=== PATIENT | female | born 1970 | race Caucasian/White ===

== ENCOUNTER 2022-09-19 18:20 | Emergency (ER) | payer BC, OTHER ==
[2022-09-19 19:05] VITALS: BP 163/100; PULSE 96; RESP 16; TEMP 98
[2022-09-19] MEDS ORDERED: HYDROcodone/APAP 5-325MG 1 EACH TAB PO STA (19:15)
[2022-09-19] MEDS ORDERED: DIPH,PERTUS(ACELL)TETVAC-LF 0.5 ML VIAL IM ONE (19:16)
--- NOTE | 2022-09-19 19:37 | XR ---
EXAMINATION TYPE: XR hand complete LT DATE OF EXAM: 09/19/2022 COMPARISON: NONE HISTORY: Trauma. Stepped on by a horse. TECHNIQUE: 3 views FINDINGS: There is comminuted fracture of the head of the third metacarpal. There is up to 5 mm displ acement. There is no dislocation. There is soft tissue swelling on the dorsum of the hand. IMPRESSION: Acute comminuted fracture of the neck of the third metacarpal head.
[2022-09-19] MEDS ORDERED: ceFAZolin 1,000 MG VIAL (IM USE) IM STA (19:45)
--- NOTE | 2022-09-19 19:46 | ED ---
Upper Extremity HPI - General Chief Complaint: Extremity Injury, Upper Stated Complaint: hand injury, stepped on by horse Time Seen by Provider: 09/19/22 19:05 Source: patient, family, RN notes reviewed Mode of arrival: ambulatory Limitations: no limitations - History of Present Illness Initial Comments: This is a 52-year-old female who presents to the emergency department for a left hand injury. States that earlier today she fell and a horse stepped on her left hand. Her hand currently feels very numb. She does have minimal movement of all digits. Also notes an open wound to the left pointer finger that was covered with horse manure. Unsure when her last tetanus vaccine was. Denies any fevers, chills, sore throat, cough, dyspnea, chest pain, palpitations, abdominal pain, nausea, vomiting, diarrhea, back pain, or headaches. MD Complaint: Injury to:: left, hand Context: crush - Related Data Previous Rx's Medication Instructions Recorded HYDROcodone/APAP 7.5-325MG [[place] 1 tab PO Q4H PRN 3 Days #18 tab 09/19/22 7.5-325] Ibuprofen 800 mg PO Q8H PRN #30 tab 09/19/22 Levofloxacin [Levaquin] 750 mg PO DAILY 7 Days #7 tab 09/19/22 metroNIDAZOLE [Flagyl] 500 mg PO TID 7 Days #21 tab 09/19/22 Allergies Allergy/AdvReac Type Severity Reaction Status Date / Time No Known Allergies Allergy Verified 09/19/22 19:05 Review of Systems ROS Statement: Those systems with pertinent positive or pertinent negative responses have been documented in the HPI. ROS Other: All systems not noted in ROS Statement are negative. Past Medical History Past Medical History: No Reported History History of Any Multi-Drug Resistant Organisms: None Reported Past Surgical History: No Surgical Hx Reported Past Psychological History: No Psychological Hx Reported Smoking Status: Never smoker Past Alcohol Use History: None Reported Past Drug Use History: None Reported General Exam General appearance: alert, in distress Head exam: Present: atraumatic, normocephalic, normal inspection Respiratory exam: Present: normal lung sounds bilaterally. Absent: respiratory distress, wheezes, rales, rhonchi, stridor Cardiovascular Exam: Present: regular rate, normal rhythm, normal heart sounds. Absent: systolic murmur, diastolic murmur, rubs, gallop, clicks Extremities exam: Present: other (Significant swelling and ecchymosis to the dorsal aspect of the left hand, most prominent around the third MCP joint. There is an avulsion injury to the left index finger with active bleeding. She does have movement of all 5 digits and capillary refill is less than 1 second.) Neurological exam: Present: alert, oriented X3, CN II-XII intact Psychiatric exam: Present: normal affect, normal mood Course Vital Signs 09/19/22 19:01 Temperature 98 F Pulse Rate 96 Respiratory 16 Rate Blood Pressure 163/100 O2 Sat by Pulse 98 Oximetry Procedures - Nerve Block Consent Obtained: verbal consent Local Anesthetic Used: Lidocaine 1% Amount of anesthesia used: 2 Side: left Nerve Blocks: digital Procedure Successful: Yes Complications: none Patient Tolerated Procedure: well - Orthopedic Splinting/Casting Injury #1 Side: left Upper Extremity Injury Location: hand Upper Extremity Immobilizer: volar splint Medical Decision Making - Medical Decision Making This is a 52-year-old female who presents to the emergency department for a left hand injury. X-ray of the left hand obtained, and on my interpretation there is a comminuted and displaced fracture of the third metacarpal head. There also appears to be a fracture to the DIP joint of the index finger where the patient has an avulsion injury. She was given a dose of Kefzol in the emergency department and her tetanus status was updated. I also did a digital block to the index finger to help with pain control. Her hand and index finger were soaked in sterile water for a prolonged period of time due to significant contamination with horse manure. Orthopedics was consulted and did not recommend any urgent intervention. She was placed in a volar splint and Gelfoam was applied to the finger prior to wrapping it. Prescription for levofloxacin and Flagyl provided to cover a broad range of bacteria, including atypicals and anaerobic bacteria, due to contamination with horse manure. She was also given a prescription for ibuprofen and [place] to control her pain. Advised alternating with ibuprofen and Tylenol and taking the [place] sparingly when her pain is the most severe. She is also instructed to apply ice for 10-15 minutes every 2-3 hours and to keep the hand elevated. Information for orthopedic follow-up was provided, and she is instructed to contact their office in the morning. Return precautions reviewed in depth, the patient is instructed to return to the emergency department with any new, worsening, or concerning symptoms. Patient verbalized understanding. This case was discussed in detail with the attending ED physician. Presentation, findings, and treatment plan discussed in detail as well. - Radiology Data Radiology results: report reviewed, image reviewed Disposition Clinical Impression: Fracture of third metacarpal bone of left hand Disposition: HOME SELF-CARE Instructions (If sedation given, give patient instructions): Hand Fracture (ED), Splint Care (ED) Additional Instructions: Return to the emergency department with any new, worsening, or concerning symptoms. Take both antibiotics as prescribed for 7 days. Alternate with Ibuprofen and Tylenol for pain relief. Take the [place] sparingly when your pain is the most severe. Apply ice for 10-15 minutes every 2-3 hours and keep the hand elevated. Contact orthopedics as listed below for a follow-up appointment. Follow up with your primary care provider in 1-2 days. Prescriptions: metroNIDAZOLE [Flagyl] 500 mg PO TID 7 Days #21 tab Ibuprofen 800 mg PO Q8H PRN #30 tab PRN Reason: Pain Levofloxacin [Levaquin] 750 mg PO DAILY 7 Days #7 tab HYDROcodone/APAP 7.5-325MG [[place] 7.5-325] 1 tab PO Q4H PRN 3 Days #18 tab PRN Reason: Pain Is patient prescribed a controlled substance at d/c from ED?: Yes When asked, does pt state using other controlled substances?: No If prescribed controlled substance>3 days was MAPS reviewed?: Prescribed <3 Days Referrals: None,Stated [Primary Care Provider] - 1-2 days Chio Quinones DO [Doctor of Osteopathic Medicine] - 1-2 days
[2022-09-19] MEDS ORDERED: KETOROLAC 15 MG/ML 1 ML VIAL IM STA (20:35)
[2022-09-19] MEDS ORDERED: MORPHINE SULFATE 4 MG/ML SYRINGE IM STA (20:35)
[2022-09-19] MEDS ORDERED: LIDOCAINE 1% INJ 10MG/ML (30 ML VIAL-PF) SQ ONE (21:34)
[2022-09-19] MEDS ORDERED: HYDROmorphone 0.5 MG/0.5 ML SYRINGE IM STA (22:22)
[2022-09-19] MEDS ORDERED: ACET/COD 300 MG/30 MG STARTER PACK 6 TAB BTL PO STA (22:46)
[2022-09-19] MEDS ORDERED: IBUPROFEN 600 MG STARTER PACK 4 TAB BTL PO STA (22:46)
[2022-09-19] MEDS ORDERED: GELATIN SPONGE,ABSORB (SMALL) 1 EACH SPONGE TOPICAL STA (23:14)
== END 2022-09-20 00:01 | disposition home or self-care (01) ==
LOC: EC 18:20
DX: S62.303A Unspecified fracture of third metacarpal bone, left hand, initial encounter for closed fracture (principal); W10.9XXA Fall (on) (from) unspecified stairs and steps, initial encounter
CPT/HCPCS: 73130; 90715; 99284; 96372 ×4; 90471; 29125; 64450; J2270; J0690; J2001; J1885; J1170; 64455

== ENCOUNTER 2022-09-23 05:57 | Day surgery (SDC) | payer BC ==
[2022-09-21 15:26] VITALS: BMI 26.5
--- NOTE | 2022-09-22 10:32 | P.HPOR ---
History of Present Illness H&P Date: 09/22/22 Chief Complaint: Left hand pain The patient is a 52-year-old right-hand dominant female who presents with left hand pain after an injury on 09/19/2022. She was stepped on by a horse in a horse stall. Initially she was seen in the emergency room and had her left index finger wound irrigated. She was started on oral antibiotics. She subsequently followed in the office the next day. She notes moderate left hand pain. She notes her tetanus is up-to-date. Review of Systems As per HPI Past Medical History Past Medical History: No Reported History History of Any Multi-Drug Resistant Organisms: None Reported Past Surgical History: No Surgical Hx Reported Additional Past Surgical History / Comment(s): Birthmark removed. Past Anesthesia/Blood Transfusion Reactions: Motion Sickness Past Psychological History: No Psychological Hx Reported Smoking Status: Never smoker Past Alcohol Use History: None Reported Past Drug Use History: None Reported - Past Family History Mother Family Medical History: No Reported History Medications and Allergies Home Medications Medication Instructions Recorded Confirmed Type HYDROcodone/APAP 7.5-325MG [[place] 1 tab PO Q4H PRN 3 Days #18 tab 09/19/22 09/21/22 Rx 7.5-325] Levofloxacin [Levaquin] 750 mg PO DAILY 7 Days #7 tab 09/19/22 09/21/22 Rx metroNIDAZOLE [Flagyl] 500 mg PO TID 7 Days #21 tab 09/19/22 09/21/22 Rx Allergies Allergy/AdvReac Type Severity Reaction Status Date / Time No Known Allergies Allergy Verified 09/21/22 15:16 Physical Examination - Wrist & Hand left Location of pain: index finger, long finger Wrist pain modifiers: with motion Index finger pain modifiers: with motion Long finger pain modifiers: with motion Appearance: other (Moderate dorsal hand swelling) Tenderness with palpation: index finger (Tender distal tip), long finger (Over the metacarpal neck) ROM: index finger MP joint: 75 degrees ROM: index finger PIP joint: 70 degrees ROM: index finger DIP joint: 10 degrees Results The patient is a well-developed well-nourished female. Nontender about the left shoulder elbow and wrist. On examination her left hand she has maceration of the index finger distal tip. Nail bed involvement is noted. She fires the FDP/FDS/EDC of the left index finger. She has moderate tenderness about the left third digit metacarpal neck. No rotational abnormalities noted. Light touch is distally intact to the digits except the left index finger distal tip. - Diagnostic results Wrist/Hand MRI: image reviewed (Left index finger comminuted distal phalanx fracture with some bony defect, left third metacarpal neck fracturecomminuteddisplaced) Assessment and Plan Assessment: Left index finger partial amputation/open distal phalanx fracture/nailbed laceration Left third metacarpal neck fracture Plan: I talked to the patient regarding her condition at this point recommend proceeding with surgical intervention regarding her left index finger. We'll plan to proceed with irrigation and debridement with possible amputation revision/nail bed repair. We will likely perform that utilizing general anesthesia along with a digital block for postoperative analgesia. Time with Patient: Less than 30
[2022-09-23] MEDS ORDERED: SCOPOLAMINE 1 MG/72 HR PATCH TRANSDERM ONE (05:58)
[2022-09-23] MEDS ORDERED: LACTATED RINGERS 1,000 ML IV SCH (05:58)
[2022-09-23] MEDS ORDERED: ONDANSETRON 4 MG/2 ML VIAL IVP ONE (05:58)
[2022-09-23] MEDS ORDERED: MIDAZOLAM 2 MG/2 ML VIAL IV PRN (05:58)
[2022-09-23] MEDS ORDERED: DEXAMETHASONE SOD PHOSPHATE 4 MG/ML 1 ML VIAL IV ONE (05:58)
[2022-09-23 06:38] LABS: HCT 36.9 % (34.0-46.0); HGB 13.1 gm/dL (11.4-16.0); MCH 30.4 pg (25.0-35.0); MCHC 35.5 g/dL (31.0-37.0); MCV 85.5 fL (80.0-100.0); Mean Platelet Volume 8.9; Platelet Count 176 k/uL (150-450); RBC 4.32 m/uL (3.80-5.40); RDW 12.7 % (11.5-15.5); WBC 5.4 k/uL (3.8-10.6)
[2022-09-23 06:54] LABS: Potassium 3.5 mmol/L (3.5-5.1)
[2022-09-23] MEDS ORDERED: LACTATED RINGERS 1,000 ML IV ONE (06:54)
[2022-09-23] MEDS ORDERED: LIDOCAINE 2% INJ 20 MG/ML (2 ML VIAL) ONE (06:55)
[2022-09-23] MEDS ORDERED: fentaNYL (PF) 50 MCG/ML 2 ML AMP ONE (06:55)
[2022-09-23] MEDS ORDERED: PHENYLEPHRINE-0.9% NACL SYG 1,000 MCG/10 ML SYRINGE ONE (06:55)
[2022-09-23] MEDS ORDERED: MIDAZOLAM 2 MG/2 ML VIAL ONE (06:55)
[2022-09-23] MEDS ORDERED: PROPOFOL 10 MG/ML 20 ML VIAL IV ONE (06:55)
[2022-09-23] MEDS ORDERED: BUPIVACAINE (PF) 0.25% 30 ML VIAL SQ ONE (06:59)
[2022-09-23] MEDS ORDERED: ceFAZolin 1,000 MG in SODIUM CHLORIDE 0.9% 1,000 ML IRRIGATION ONE (07:18)
--- NOTE | 2022-09-23 07:48 | P.OP ---
Date of Procedure: 09/23/22 Preoperative Diagnosis: Left index finger partial amputation Postoperative Diagnosis: Same Procedure(s) Performed: Irrigation and debridement left index finger open distal phalanx fracture with amputation revision Anesthesia: DALTON, local Surgeon: Michael Martinez Special Education Assistant #1: Ambrose Montilla Estimated Blood Loss (ml): 4 Pathology: none sent Condition: stable Disposition: PACU Indications for Procedure: The patient's a 52-year-old female who presents after sustaining an injury to her left index finger 2 days ago with an open distal phalanx fracture. She was noted to have soft tissue loss. A discussion of the risks and benefits of operative intervention was made with patient. She opted to proceed. Operative risks to include infection, and possible need for subsequent procedures was discussed. Informed consent was obtained. Operative Findings: As below Description of Procedure: The patient was brought to the operating room, and after induction of general anesthesia the left upper extremity was prepped and draped in normal fashion. A [place] drain was used as a tourniquet for the left index finger. The amputation of the distal tip was explored. The distal phalanx was exposed. I d id proceed with shortening to provide adequate soft tissue coverage. No remaining nail bed was noted. Sharp debridement was performed with a scalpel down to level of the distal phalanx/bone. Copious irrigation was utilized with 2 L of fluid. The soft tissues were then closed over the distal tip utilizing 5-0 fast-absorbing Vicryl suture. I felt there was adequate soft tissue coverage at this point. The tourniquet was removed. Triple antibiotic ointment was placed. A digital block was placed utilizing one quarter percent plain Marcaine/10 mL. A sterile dressing was applied in addition to a volar splint. The patient was awoken from general anesthesia and transferred to recovery room in good condition. Blood loss was estimated at 4 mL. No complications were incurred. Sponge and needle counts were correct at the end of the case.
[2022-09-23 08:01] VITALS: TEMP 97.1
[2022-09-23] MEDS: HYDROmorphone 0.5 MG/0.5 ML SYRINGE IVP PRN ×2 (08:18→08:39)
[2022-09-23] MEDS ORDERED: KETOROLAC 15 MG/ML 1 ML VIAL IVP ONE (08:39)
[2022-09-23 09:17] VITALS: RESP 20
[2022-09-23 09:58] VITALS: BP 129/76; PULSE 74
== END 2022-09-23 10:13 | disposition home or self-care (01) ==
LOC: OR 05:57
PROVIDERS: ATTEND Orthopaedic Surgery
DX: S68.121A Partial traumatic metacarpophalangeal amputation of left index finger, initial encounter (principal); W55.19XA Other contact with horse, initial encounter; Z79.899 Other long term (current) drug therapy
CPT/HCPCS: 80051; 85027; 11012; J2250; J1100; J2405; J0690; J3010; J1885; J2370; J2704; J1170; J2001

== ENCOUNTER 2022-09-28 10:44 | Day surgery (SDC) | payer BC ==
--- NOTE | 2022-09-27 19:31 | P.HPOR ---
History of Present Illness H&P Date: 09/27/22 Chief Complaint: Left third metacarpal neck frature Subjective: This is a 52 year old female that presents today for initial evaluation regarding a left hand injury that occurred on 09/19/22 when she tripped in a horse stall and had the horse stomp on her hand. She was seen in office with Dr. Azul after her injury on 09/21/22 and was found to have a left index finger partial tip amputation and a comminuted third metacarpal neck fracture and underwent revision amputation for a partial index finger tip amputation on 09/23/22. She presents today for further evaluation regarding her left middle finger fracture due to complexity of the injury. She has been on Keflex for her injury and has been in her post op splint since surgery. Physical Examination: LUE: AIN/PIN/Radial/Ulnar/Median motor intact. Radial/Ulnar/Median SILT. 2+/4 Radial/Ulnar pulses palpated. 5/5 APB, 5/5 FDI. Index finger tip well perfused with good skin coverage present. Pt unable to make a fist due to pain, obvious ulnar deviation of third metacarpal with any attempt to make a fist. Imaging: X-Rays of the left hand 3V on 09/26/22 in office demonstrate a comminuted third metacarpal neck fracture with 20 degrees of extension and 30 degrees of ulnar deviation. Fracture extension into metadiaphyseal portion of metacarpal. Impression: 1.) Left third metacarpal neck fracture, displaced. 2.) Left index finger distal tip amputation s/p revision amputation. Plan: Diagnosis and treatment options were discussed with the patient. Due to continued deformity of her left middle finger metacarpal I recommend surgical intervention with left third metacarpal fracture CRPP vs ORIF. Risks and benefits of surgery including bleeding, infection, damage to surrounding tissue, need for further surgery, residual numbness were discussed and the patient wished to go forward with surgery. She is placed in a new dressing and will be scheduled for surgery in the near future. The patient was agreeable with this plan. -Eric Avila DO Orthopedic Hand/Upper Extremity Surgeon Past Medical History Past Medical History: No Reported History Additional Past Medical History / Comment(s): 09/19/22 HORSE STEPPED ON LEFT HAND. History of Any Multi-Drug Resistant Organisms: None Reported Past Surgical History: No Surgical Hx Reported Additional Past Surgical History / Comment(s): 09/23/22 PARTIAL AMPUTAION OF LEFT INDEX FINGER BY DR. HUNT. Birthmark removed. Past Anesthesia/Blood Transfusion Reactions: Motion Sickness, Postoperative Nausea & Vomiting (PONV) Past Psychological History: No Psychological Hx Reported Smoking Status: Never smoker Past Alcohol Use History: None Reported Past Drug Use History: None Reported - Past Family History Mother Family Medical History: No Reported History Medications and Allergies Home Medications Medication Instructions Recorded Confirmed Type Cephalexin [Keflex] 500 mg PO Q6HR 10 Days #28 cap 09/23/22 09/27/22 Rx HYDROcodone/APAP 5-325MG [[place] 1 tab PO Q6HR PRN #15 tab 09/23/22 09/27/22 Rx 5-325] Allergies Allergy/AdvReac Type Severity Reaction Status Date / Time No Known Allergies Allergy Verified 09/27/22 09:18 Physical Examination Osteopathic Statement: *. No significant issues noted on an osteopathic structural exam other than those noted in the History and Physical/Consult.
[~2022-09-28 10:44] MED LIST: DEXAMETHASONE SOD PHOSPHATE 4 MG/ML 1 ML VIAL IV ONE; LACTATED RINGERS 1,000 ML IV SCH; LIDOCAINE 1% (10MG/ML) FOR IV START INTRADERMA PRN; MIDAZOLAM 2 MG/2 ML VIAL IV PRN; ONDANSETRON 4 MG/2 ML VIAL IVP ONE
[2022-09-28] MEDS ORDERED: SCOPOLAMINE 1 MG/72 HR PATCH TRANSDERM ONE (11:28)
[2022-09-28] MEDS ORDERED: LIDOCAINE 2% INJ 20 MG/ML (2 ML VIAL) ONE (11:46)
[2022-09-28] MEDS ORDERED: PHENYLEPHRINE-0.9% NACL SYG 1,000 MCG/10 ML SYRINGE ONE (11:46)
[2022-09-28] MEDS ORDERED: fentaNYL (PF) 50 MCG/ML 2 ML AMP ONE (11:46)
[2022-09-28] MEDS ORDERED: MIDAZOLAM 2 MG/2 ML VIAL ONE (11:46)
[2022-09-28] MEDS ORDERED: PROPOFOL 10 MG/ML 20 ML VIAL IV ONE (11:46)
[2022-09-28] MEDS ORDERED: BACITRACIN ZINC 500 UNIT/GM OINT 28.4 GM TUBE TOPICAL ONE (12:25)
[2022-09-28] MEDS ORDERED: BUPIVACAINE (PF) 0.5% 30 ML VIAL SQ ONE (12:38)
[2022-09-28 12:53] VITALS: TEMP 98.9
[2022-09-28] MEDS: HYDROmorphone 0.5 MG/0.5 ML SYRINGE IVP PRN ×2 (12:56→13:09)
[2022-09-28 13:04] VITALS: RESP 16
[2022-09-28] MEDS ORDERED: LABETALOL SYRINGE 5 MG/ML IVP ONE (13:20)
[2022-09-28 13:57] VITALS: PULSE 79
[2022-09-28] MEDS ORDERED: HYDROcodone/APAP 5-325MG 1 EACH TAB ONE (14:00)
[2022-09-28] MEDS ORDERED: HYDROcodone/APAP 5-325MG 1 EACH TAB PO ONE (14:01)
[2022-09-28 14:17] VITALS: BP 133/85
--- NOTE | 2022-09-28 22:12 | P.OP ---
Date of Procedure: 09/28/22 Preoperative Diagnosis: Left third metacarpal neck fracture, displaced. Postoperative Diagnosis: Left third metacarpal neck fracture, displaced. Procedure(s) Performed: Left third metacarpal neck fracture closed reduction percutaneous pinning Implants: 0.045 K Wires x 2 Anesthesia: DALTON Surgeon: Eric Avila Machine Cloth Trimmer #1: Pradeep Romero Estimated Blood Loss (ml): 10 Pathology: none sent Condition: stable Disposition: PACU Description of Procedure: This is a 52 year old female who sustained a left third metacarpal neck fracture with displacement and rotational deformity who presents today for surgical intervention. Risks and benefits of surgery were discussed with the patient including bleeding, damage to surrounding tissue, infection, need for further surgery as well as risks of anesthesia including pulmonary embolism and even and the patient wished to proceed with surgical intervention. The patient was seen in the pre-operative area by myself. Consent and H&P were completed and updated. The correct extremity was marked in the pre-operative area by myself and all other questions were answered. Operative Narrative: The patient was brought to the operating room by the department of anesthesia. They remained on the portable stretcher and a rolling hand table was brought to the side of the operative extremity. Pre-operative time out was performed indicating the correct patient, procedure and laterality. All in the room agreed. Pre-operative antibiotics were given prior to skin incision. The patient was then drifted off to sleep by the department of anesthesia. A nonsterile tourniquet was then applied to the operative extremity and the left upper extremity was then prepped and draped in normal sterile fashion. The tourniquet was not inflated. Under live fluoroscopy closed reduction maneuver was performed with aid of percutaneous reduction forceps to restore length, alignment, and rotation. Reduction was held with reduction clamps and yazidism of rotation and normal cascade of digits was appreciated. Two 0.045 K-wires were then inserted in retrograde fashion across the fracture site in a crossing pattern and driven down to the proximal cortex of the third metacarpal. Intramedullary placement was confirmed on imaging and anatomic reduction was achieved on AP/lateral and oblique imaging. Pin edges were cut and pin cap balls were placed. Median nerve block was performed with 10cc's of a mixture of 1% Lidocaine and 0.5 % Bupivicaine. Sterile dressing and splint was applied with fingers held in intrinsic plus position. The patient was then woken by the department of anesthesia and transferred to PACU in stable condition. Pradeep PETERSEN was present to assist in major potions of case including fracture reduction and hardware placement. Eric Avila D.O. Orthopedic Hand/Upper Extremity Surgeon
== END 2022-09-28 14:32 | disposition home or self-care (01) ==
LOC: OR 10:44
PROVIDERS: ATTEND Orthopaedic Surgery Hand Surgery
DX: S62.333A Displaced fracture of neck of third metacarpal bone, left hand, initial encounter for closed fracture (principal); K91.0 Vomiting following gastrointestinal surgery; Z79.899 Other long term (current) drug therapy; T75.3XXD Motion sickness, subsequent encounter
CPT/HCPCS: 26607; C1713; J2250; J1100; J2405; J0690; J3010; J2370; J2704; J1170; J2001